=== PATIENT | male | born 1940 | race American Indian/Alaskan Native ===

== ENCOUNTER 2021-10-30 06:23 | Day surgery (SDC) | payer MEDICARE ==
[2021-10-30] MEDS ORDERED: ASPIRIN EC 325 MG TAB PO SCH (07:00)
[2021-10-30 07:23] LABS: Basophils % (Auto) 0.7 % (0.0-1.8); Eosinophils # (Auto) 0.2 K/mm3 (0.0-0.4); Eosinophils % (Auto) 4.3 % (0.0-4.3); Hematocrit 42.3 % (35.5-45.6); Hemoglobin 14.6 gm/dl (11.8-15.2); Lymphocytes # (Auto) 1.6 K/mm3 (1.2-5.4); Lymphocytes % (Auto) 32.9 % (13.4-35.0); Mean Corpuscular HGB Conc 35 % (32-34); Mean Corpuscular Volume 101 fl (84-94); Monocytes # (Auto) 0.4 K/mm3 (0.0-0.8); Monocytes % (Auto) 8.7 % (0.0-7.3); Platelet Count 156 K/mm3 (140-440); Red Blood Count 4.19 M/mm3 (3.65-5.03); Red Cell Distribution Width 13.8 % (13.2-15.2)
[2021-10-30 07:32] LABS: INR 0.98 (0.87-1.13)
[2021-10-30 07:33] LABS: Partial Thromboplastin Time 30.5 Sec. (24.2-36.6)
[2021-10-30 07:42] LABS: BUN/Creatinine Ratio 22; Blood Urea Nitrogen 22 mg/dL (9-20); Hemolysis Index 7
[2021-10-30] MEDS: SODIUM CHLORIDE 0.9% 500 ML 500 ML IV SCH ×2 (08:06→09:17)
[2021-10-30] MEDS ORDERED: HEPARIN/NS 5000 UNIT/500ML 1,000 ML IR ONE (08:38)
[2021-10-30] MEDS ORDERED: fentaNYL 100 MCG/2 ML INJ ONE (08:38)
[2021-10-30] MEDS ORDERED: HEPARIN 10,000 UNITS/10 ML VIAL ONE (08:38)
[2021-10-30] MEDS ORDERED: MIDAZOLAM 2 MG/2 ML INJ ONE (08:38)
[2021-10-30] MEDS ORDERED: VERAPAMIL 5 MG/2 ML INJ ONE (08:39)
[2021-10-30] MEDS ORDERED: NITROGLYCERIN SYRINGE 3 ML ONE (08:39)
[2021-10-30] MEDS ORDERED: LIDOCAINE (1%) 10 MG/1 ML VIAL 20 ML MDV ONE (08:40)
--- NOTE | 2021-10-30 10:33 | Cardiac Catherization Report ---
DATE OF SERVICE: 10/30/2021 This is a left heart cath being done by Dr. English on ORDERING PHYSICIAN: Dr. Dontae Chavez. CLINICAL INFORMATION: This is a 80-year-old male with hypertension, hyperlipidemia, has severe aortic stenosis on echocardiogram, has symptomatic shortness of breath, is here for a left heart catheterization for coronary artery disease, aortic stenosis. Procedure was done with moderate sedation, started at 9:20, finished at 9:50, 30 minutes of moderate sedation. DESCRIPTION OF PROCEDURE: Procedure was done initially through the right radial artery, but unable to get access due to tortuosity, so procedure was done via the right common femoral artery, sterile technique and local anesthesia. A 6-Beninese groin sheath inserted. Left system engaged with JL3.5 catheter. Left main is medium caliber vessel, patent, and trifurcates. LAD is a medium caliber vessel, proximally is 70% then becomes 100%. Ramus is a medium caliber vessel, proximally patent, mid focal 70-80% lesion then you see extensive collaterals from the ramus feeding into the distal LAD all the way up to the mid LAD. Circumflex is a medium caliber, patent with mild luminal irregularities. OM1 is a small to medium caliber, patent with mild luminal irregularities. RCA is a large, dominant vessel, is patent with mild luminal irregularities. PDA has a proximal 70-80%. PLV is a small to medium caliber, patent. I was able to cross into the LV with a Glidewire and exchanged that for a Marlow catheter. Hemodynamically, LV was 157/25, LVEDP 25 mmHg, aortic is 124/63. There is a mean gradient of 26 mmHg, phhw-bf-zxpw of 33 mmHg. Catheter was pulled back and there was equalization noted. All catheter was taken over guidewire. A 6-Beninese groin sheath was discontinued, manual pressure held. No hematoma, no bleeding. SUMMARY: 1. Left main patent, LAD proximal 70% becomes then 100%. FIRE EXTINGUISHER CHARGER of the LAD with extensive collateralization from the ramus feeding into the mid LAD, ramus is a medium caliber vessel with focal mid 70-80%, circumflex is patent, OM1 patent with mild luminal irregularities. RCA is a large, dominant, patent with mild luminal irregularities. PLV is patent. PDA has a focal 70-80%. 2. The patient will be referred to [facility] for advanced PCI for possible FIRE EXTINGUISHER CHARGER of the LAD and PCI of the ramus and has moderate aortic stenosis. Discussed in detail with the patient and the patient's family. TID: [id number] RECEIPT: [id number] BRISA
--- NOTE | 2021-10-30 10:41 | Electrocardiograph Report ---
[facility] Test Date: 2021-10-30 Test Time: 07:32:36 Pat Name: DARRON AMES Department: Room: Gender: M Vp Strategic Planning: NUHA : 1940 Requested By: KARL ENGLISH Order Number: [id number] Reading MD: Karl English Measurements Intervals [place] Rate: 48 P: 35 SD: 152 QRS: 8 QRSD: 92 T: -9 QT: 424 QTc: 380 Interpretive Statements Sinus bradycardia nonspecific st-t No previous ECG available for comparison Electronically Signed On 10-30-2021 10:41:11 EDT by Karl English
--- NOTE | 2021-10-30 10:50 | Short Stay Summary ---
Short Stay Documentation Date of service: 10/30/21 - History H&P: obtained from office - Allergies and Medications Current Medications: Allergies Sulfa (Sulfonamide Antibiotics) Allergy (Verified 10/30/21 06:51) Rash sulfamethoxazole [From Bactrim] Allergy (Verified 10/30/21 06:51) Rash trimethoprim [From Bactrim] Allergy (Verified 10/30/21 06:51) Rash Home Medications Medication Instructions Recorded Confirmed Last Taken Type Antiarthritic Combination No.2 900 mg PO DAILY 10/30/21 10/30/21 10/29/21 History [Glucosamine-Chondroitin] Aspirin [Aspirin BABY CHEW TAB] 81 mg PO QDAY 10/30/21 10/30/21 10/29/21 History Wyydwthk33/Folic AC/Nadh/Coq10 1 each PO DAILY 10/30/21 10/30/21 10/29/21 History [Xyzbac Tablet] Mv-Mn/Folic/Q10/Lycopen/Lutein 1 each PO DAILY 10/30/21 10/30/21 10/29/21 History [One-Daily Multi Caps] [place]-3S/Dha/Epa/Fish Oil [Fish 1 each PO DAILY 10/30/21 10/30/21 10/29/21 History Oil [place]-3 Softgel] Omeprazole 20 mg PO DAILY 10/30/21 10/30/21 10/29/21 History Simvastatin 10 mg PO DAILY 10/30/21 10/30/21 10/29/21 History Tamsulosin [Flomax] 0.4 mg PO QDAY 10/30/21 10/30/21 10/29/21 History Active Medications Hydrocodone Bitart/Acetaminophen (Hydrocodone/Acetaminophen 5-325 Mg Tab) 1 each PO Q4H PRN PRN Reason: Pain, Moderate (4-6) Aspirin (Aspirin Ec 325 Mg Tab) 325 mg PO ONCE@0700 HANS Stop: 10/30/21 18:00 Last Admin: 10/30/21 08:00 Dose: 325 mg Sodium Chloride (Nacl 0.9% 500 Ml) 500 mls @ 50 mls/hr IV DIRECT HANS Stop: 10/30/21 16:59 Last Admin: 10/30/21 09:17 Dose: 50 mls/hr Tramadol HCl (Tramadol 50 Mg Tab) 50 mg PO Q4H PRN PRN Reason: Pain, Mild (1-3) - Physical exam Integumentary: other (Dressing clean dry intact with no signs of bleeding or hematoma) - Brief post op/procedure progress note Date of procedure: 10/30/21 Pre-op diagnosis: CAD, aortic stenosis Post-op diagnosis: same Anesthesia: local Estimated blood loss: minimal - Hospital course Hospital course: Patient presents today for cardiac cath for aortic stenosis and CAD. Patient found to have HAND WELT BUTTER of the LAD with extensive collateralization, ramus with 70 to 80% lesion, circumflex pain, PDA has a focal 70% lesion. See cath report for full details. Patient to be referred to [facility] for advanced PCI for possible HAND WELT BUTTER of LAD and PCI of the ramus. Patient has moderate aortic stenosis. Patient tolerated procedure well with no complications. Plan of care discussed with patient and patient's family who verbalized understanding and acknowledged - Disposition Condition at discharge: Good Disposition: 01 HOME / SELF CARE / HOMELESS - Discharge Diagnoses (1) Coronary artery disease Status: Acute (2) Aortic stenosis Status: Acute (3) Mixed hyperlipidemia Status: Acute (4) MARGY (obstructive sleep apnea) Status: Acute Short Stay Discharge Plan Activity: advance as tolerated Diet: low fat, low cholesterol, low salt Wound: keep clean and dry, per your surgeon's advice Follow up with: KIM RYENA MD [Primary Care Provider] - 7 Days ELPIDIO LEGER MD [Staff Physician] - 11/12/21 2:00 pm (In our [place] location.)
[2021-10-30] MEDS ORDERED: traMADol 50 MG TAB PO PRN (11:00)
[2021-10-30] MEDS ORDERED: HYDROcodone/ACETAMINOPHEN 5-325 MG TAB PO PRN (11:00)
[2021-10-30 15:07] VITALS: BP 129/60
== END 2021-10-30 14:55 | disposition home or self-care (01) ==
LOC: CATHLABREC 06:23
PROVIDERS: ATTEND Internal Medicine
DX: I35.0 Nonrheumatic aortic (valve) stenosis (principal); R06.02 Shortness of breath; I25.10 Atherosclerotic heart disease of native coronary artery without angina pectoris; E78.2 Mixed hyperlipidemia; G47.33 Obstructive sleep apnea (adult) (pediatric); Z98.49 Cataract extraction status, unspecified eye; Z88.2 Allergy status to sulfonamides; Z88.8 Allergy status to other drugs, medicaments and biological substances; Z79.899 Other long term (current) drug therapy; Z79.82 Long term (current) use of aspirin; Z87.891 Personal history of nicotine dependence; Z85.828 Personal history of other malignant neoplasm of skin; Z98.890 Other specified postprocedural states
CPT/HCPCS: 36415; 80048; 85025; 85610; 85730; 93005; 93458; 99156; 99157; C1751; C1769; C1894; J1644; J1815; J2250; J3010; J7040; Q9967

== ENCOUNTER 2021-12-02 06:28 | Day surgery (SDC) | payer MEDICARE ==
[2021-12-02] MEDS: SODIUM CHLORIDE 0.9% 500 ML 500 ML IV SCH ×2 (07:41→08:39)
[2021-12-02 07:47] LABS: Basophils # (Auto) 0.1 K/mm3 (0.0-0.1); Basophils % (Auto) 0.8 % (0.0-1.8); Eosinophils # (Auto) 0.2 K/mm3 (0.0-0.4); Eosinophils % (Auto) 2.7 % (0.0-4.3); Hemoglobin 13.1 gm/dl (11.8-15.2); Lymphocytes # (Auto) 1.4 K/mm3 (1.2-5.4); Lymphocytes % (Auto) 18.2 % (13.4-35.0); Mean Corpuscular HGB Conc 34 % (32-34); Mean Corpuscular Volume 101 fl (84-94); Monocytes # (Auto) 0.7 K/mm3 (0.0-0.8); Monocytes % (Auto) 8.5 % (0.0-7.3); Platelet Count 208 K/mm3 (140-440); Red Blood Count 3.75 M/mm3 (3.65-5.03); Red Cell Distribution Width 12.7 % (13.2-15.2)
[2021-12-02 07:57] LABS: BUN/Creatinine Ratio 21; Blood Urea Nitrogen 17 mg/dL (9-20); Calcium 9.1 mg/dL (8.4-10.2); Hemolysis Index 24
[2021-12-02] MEDS ORDERED: CLOPIDOGREL 75 MG TAB PO NR (08:00)
[2021-12-02] MEDS ORDERED: VERAPAMIL 5 MG/2 ML INJ ONE (08:03)
[2021-12-02] MEDS ORDERED: NITROGLYCERIN SYRINGE 3 ML ONE (08:03)
[2021-12-02] MEDS ORDERED: HEPARIN/NS 5000 UNIT/500ML 1,000 ML IR ONE (08:03)
[2021-12-02] MEDS ORDERED: HEPARIN 10,000 UNITS/10 ML VIAL ONE (08:03)
[2021-12-02 08:13] LABS: INR 0.92 (0.87-1.13)
[2021-12-02] MEDS: fentaNYL 100 MCG/2 ML INJ ONE ×2 (08:39→08:53)
[2021-12-02] MEDS: LIDOCAINE (2%) 20 MG/1 ML VIAL 50 ML MDV INFILTRATI ONE ×2 (08:39→08:54)
[2021-12-02] MEDS: MIDAZOLAM 2 MG/2 ML INJ ONE ×2 (08:39→08:53)
[2021-12-02] MEDS ORDERED: CLOPIDOGREL 300 MG TAB ONE (09:12)
--- NOTE | 2021-12-02 09:52 | Cardiac Catherization Report ---
DATE OF PROCEDURE: 12/02/2021 REFERRING PHYSICIAN: Agapito Chavez MD INDICATIONS FOR PROCEDURE: The patient is a very pleasant 80-year-old gentleman who underwent left heart catheterization for aortic stenosis last month. He was found to have only mild to moderate with a chronic total occluded LAD and 90% ramus intermedius stenosis. At that point, he underwent a complex PCI of DISTRIBUTION MANAGER LAD at [place]. At this point, he is here for elective PCI of ramus. Risks, benefits, alternatives discussed at length prior to obtaining informed consent. PROCEDURE IN DETAIL: The patient was brought to the car barn laborer in a postabsorptive state, prepped and draped in sterile fashion. He had significant trouble with radial access last time. We went groin, 6-Vietnamese sheath placed in the right common femoral artery via modified Seldinger technique, heparin given. The patient reloaded with aspirin and Plavix. We used an EBU 3.75 guide to engage the left main without difficulty. Abnormal ACT is confirmed. Angiography was performed in all projections. Angiography reveals LAD is widely patent, stents in the LAD looked great. Left main without significant disease, 95% ulcerated mid ramus intermedius stenosis and this is the vessel that was scheduled for staged PCI today. We used a 2.5 x 12 balloon to predilate the lesion after a [place] wire was placed down. Next, we used a 2.5 x 12 Howard drug-eluting stent, excellent angiographic results, 0% residual stenosis. Once stent is well deployed, good result, RAVEN 3 flow. We used IVUS. Intravascular ultrasound reveals a well opposed, well-expanded stent, no dissection, no complication, 0% residual stenosis, RAVEN 3 flow. Procedure was aborted. I directly supervised the administration of moderate sedation with fentanyl and Versed from 8:50 a.m. to 9:15 a.m. No immediate complications identified. The patient tolerated the procedure well. CONCLUSIONS: * Successful staged PCI of culprit 95% ulcerated mid ramus intermedius stenosis. * Successful IVUS-guided PCI with placement of drug-eluting stent, Jorge 2.5 x 12 (excellent final angiographic and ultrasonographic results. * Patent LAD stents. * No significant disease in left main. The patient is clinically stable. Standard groin care. Plavix, aspirin and statin therapy. Follow up with me in the office. Consider same day discharge. The patient is clinically stable and chest pain free. TID: [id number] RECEIPT: [id number] SALVADOR/TOI
[2021-12-02] MEDS ORDERED: traMADol 50 MG TAB PO PRN (10:56)
[2021-12-02] MEDS ORDERED: HYDROcodone/ACETAMINOPHEN 5-325 MG TAB PO PRN (11:30)
--- NOTE | 2021-12-02 12:32 | Short Stay Summary ---
Short Stay Documentation Date of service: 12/02/21 - History H&P: obtained from office - Allergies and Medications Current Medications: Allergies Sulfa (Sulfonamide Antibiotics) Allergy (Verified 10/30/21 06:51) Rash sulfamethoxazole [From Bactrim] Allergy (Verified 10/30/21 06:51) Rash trimethoprim [From Bactrim] Allergy (Verified 10/30/21 06:51) Rash Home Medications Medication Instructions Recorded Confirmed Last Taken Type Antiarthritic Combination No.2 900 mg PO DAILY 10/30/21 12/02/21 12/01/21 History [Glucosamine-Chondroitin] 900 mg Aspirin [Aspirin BABY CHEW TAB] 81 mg PO QDAY 10/30/21 12/02/21 12/02/21 07:41 History 81 mg Bwvpfrbd41/Folic AC/Nadh/Coq10 1 each PO DAILY 10/30/21 12/02/21 12/01/21 History [Xyzbac Tablet] 1 tab Mv-Mn/Folic/Q10/Lycopen/Lutein 1 each PO DAILY 10/30/21 12/02/21 12/01/21 History [One-Daily Multi Caps] 1 tab [place]-3S/Dha/Epa/Fish Oil [Fish 1 each PO DAILY 10/30/21 12/02/21 12/01/21 History Oil [place]-3 Softgel] 1 tab Omeprazole 20 mg PO DAILY 10/30/21 12/02/21 12/01/21 History 20 mg Simvastatin 10 mg PO DAILY 10/30/21 12/02/21 12/01/21 History 10 mg Tamsulosin [Flomax] 0.4 mg PO QDAY 10/30/21 12/02/21 12/01/21 History 04 mg Clopidogrel [Plavix] 75 mg PO DAILY 12/02/21 12/02/21 12/02/21 07:44 History 75 mg Active Medications Hydrocodone Bitart/Acetaminophen (Hydrocodone/Acetaminophen 5-325 Mg Tab) 1 each PO Q4H PRN PRN Reason: Pain, Moderate (4-6) Stop: 12/02/21 18:00 Clopidogrel Bisulfate (Clopidogrel 75 Mg Tab) 75 mg PO ONCE NR Stop: 12/02/21 14:00 Last Admin: 12/02/21 07:40 Dose: 75 mg Sodium Chloride (Nacl 0.9% 500 Ml) 500 mls @ 50 mls/hr IV DIRECT HANS Stop: 12/02/21 17:59 Last Admin: 12/02/21 08:39 Dose: 50 mls/hr Tramadol HCl (Tramadol 50 Mg Tab) 50 mg PO Q4H PRN PRN Reason: Pain, Mild (1-3) Stop: 12/02/21 18:00 - Physical exam Integumentary: other (Dressing clean dry and intact with no signs of bleeding or hematoma) - Brief post op/procedure progress note Date of procedure: 12/02/21 Pre-op diagnosis: CAD Post-op diagnosis: same Anesthesia: local Estimated blood loss: minimal - Hospital course Hospital course: Patient presents today for cardiac cath of ramus. Patient had PCI of ramus with 1 FRANCOIS. Patient tolerated procedure well. Patient to be discharged home and on DAPT therapy with aspirin Plavix. Plan of care discussed with patient verbalized understanding and acknowledgment - Disposition Condition at discharge: Good Disposition: 01 HOME / SELF CARE / HOMELESS - Discharge Diagnoses (1) Aortic stenosis Status: Acute (2) Coronary artery disease Status: Acute (3) Mixed hyperlipidemia Status: Acute (4) MARGY (obstructive sleep apnea) Status: Acute Short Stay Discharge Plan Activity: advance as tolerated Diet: low fat, low cholesterol, low salt Wound: keep clean and dry, per your surgeon's advice Follow up with: KIM REYNA MD [Primary Care Provider] - 7 Days ELPIDIO LEGER MD [Staff Physician] - 12/24/21 2:30 pm (Patient's follow-up in our [place] location. Phone #[phone])
[2021-12-02 17:01] VITALS: BP 119/59
--- NOTE | 2021-12-02 17:42 | Electrocardiograph Report ---
[facility] Test Date: 2021-12-02 Test Time: 07:27:54 Pat Name: DARRON AMES Department: Room: Gender: M Epoxy Coatings Installer: ALIX : 1940 Requested By: ELPIDIO LEGER Order Number: [id number] Reading MD: Linda Medrano Measurements Intervals [place] Rate: 55 P: 34 WV: 154 QRS: 10 QRSD: 85 T: -27 QT: 409 QTc: 392 Interpretive Statements Sinus bradycardia Left ventricle hypertrophy Compared to ECG 10/30/2021 07:32:36 Sinus rate has increased Electronically Signed On 12-02-2021 17:42:09 EDT by Linda Medrano
--- NOTE | 2021-12-02 17:44 | Electrocardiograph Report ---
[facility] Test Date: 2021-12-02 Test Time: 10:05:22 Pat Name: DARRON AMES Department: Room: Gender: M Timber Inspector: ALIX : 1940 Requested By: ELPIDIO LEGER Order Number: [id number] Reading MD: Linda Medrano Measurements Intervals [place] Rate: 52 P: 52 MO: 160 QRS: 12 QRSD: 93 T: -53 QT: 413 QTc: 384 Interpretive Statements Sinus bradycardia Nonspecific T abnormalities, diffuse leads Compared to ECG 12/02/2021 07:27:54 No significant change Electronically Signed On 12-02-2021 17:44:05 EDT by Linda Medrano
== END 2021-12-02 17:35 | disposition home or self-care (01) ==
LOC: CATHLABREC 06:28
PROVIDERS: ATTEND Internal Medicine
DX: I35.0 Nonrheumatic aortic (valve) stenosis (principal); I25.10 Atherosclerotic heart disease of native coronary artery without angina pectoris; T82.855A Stenosis of coronary artery stent, initial encounter; G47.33 Obstructive sleep apnea (adult) (pediatric); E78.2 Mixed hyperlipidemia; Z79.899 Other long term (current) drug therapy; Z88.2 Allergy status to sulfonamides; Z88.8 Allergy status to other drugs, medicaments and biological substances; Z79.82 Long term (current) use of aspirin; Z87.891 Personal history of nicotine dependence; Z98.61 Coronary angioplasty status; Z98.49 Cataract extraction status, unspecified eye; Z98.890 Other specified postprocedural states; Z85.828 Personal history of other malignant neoplasm of skin; Y83.8 Other surgical procedures as the cause of abnormal reaction of the patient, or of later complication, without mention of misadventure at the time of the procedure; Y92.89 Other specified places as the place of occurrence of the external cause
CPT/HCPCS: 36415; 80048; 85025; 85610; 85730; 92978; 93005; 99156; 99157; C1725; C1753; C1769; C1874; C1887; C1894; C9600; J1644; J1815; J2250; J3010; J3490; J7040; 92928; Q9967